=== PATIENT | female | born 1950 | race African-American/Black ===

== ENCOUNTER 2017-01-27 12:03 | Emergency (ER) | payer OTHER ==
[~2017-01-27] VITALS: Ht 152.4 cm; Wt 56.8 kg
[2017-01-27] MEDS ORDERED: LISI-661 PO (12:26)
[2017-01-27] MEDS ORDERED: ASPI-556 PO (12:26)
[2017-01-27] MEDS ORDERED: AMLO-511 PO (12:26)
[2017-01-27] MEDS ORDERED: PRAV40 PO (12:26)
[2017-01-27 13:30] VITALS: BP 130/75
== END 2017-01-27 13:56 | disposition home or self-care (01) ==
LOC: EMS 12:07
DX: M62.838 Other muscle spasm (principal); I10 Essential (primary) hypertension; Z79.82 Long term (current) use of aspirin
CPT/HCPCS: 99282

== ENCOUNTER 2017-10-14 09:39 | Emergency (ER) | payer OTHER ==
[~2017-10-14] VITALS: Ht 149.9 cm; Wt 54.5 kg
[~2017-10-14 09:39] MED LIST: AMLO-511 PO; ASPI-556 PO; LISI-661 PO; PRAV40TA4 PO
[2017-10-14] MEDS ORDERED: IBUP-2070 PO (09:59)
[2017-10-14] MEDS ORDERED: LISI1TAB9 PO (09:59)
[2017-10-14] MEDS ORDERED: IOVERSOL 320 MG/ML 100 ML VIAL ONE (10:33)
[2017-10-14] MEDS ORDERED: SODIUM CHLORIDE 0.9% 100 ML ONE (10:33)
[2017-10-14 10:46] LABS: BASOPHILS % (AUTO) 0.9 % (0.0-2.0); EOSINOPHILS % (AUTO) 1.3 % (1.0-6.0); HEMATOCRIT 32.8 % (36-46); HEMOGLOBIN 11.5 g/dL (12.0-16.0); LYMPHOCYTES # (AUTO) 1.4 K/uL (1.0-4.8); LYMPHOCYTES % (AUTO) 36.1 % (22.0-44.0); MEAN CORPUSCULAR HEMOGLOBIN 30.5 pg (26.0-34.0); MEAN CORPUSCULAR VOLUME 87 fL (80-100); MONOCYTES # (AUTO) 0.3 K/uL (0.1-1.0); MONOCYTES % (AUTO) 7.9 % (2.0-9.0); NEUTROPHILS % (AUTO) 53.8 % (40.0-70.0); PLATELET COUNT (AUTO) 271 K/uL (150-450); RED BLOOD CELL COUNT(AUTO) 3.77 MIL/uL (4.00-5.20); RED CELL DISTRIBUTION WIDTH 12.6 % (11.5-14.5)
[2017-10-14 10:50] LABS: CALCIUM, TOTAL 9.4 mg/dL (8.8-10.5); CREATININE 1.39 mg/dL (0.60-1.30); POTASSIUM 3.8 mmol/L (3.5-5.1)
[2017-10-14 10:55] LABS: ALBUMIN 4.1 g/dL (3.4-5.0); BILIRUBIN,TOTAL 0.3 mg/dL (0.1-1.0); TOTAL PROTEIN, SERUM 7.6 g/dL (6.4-8.2)
[2017-10-14] MEDS ORDERED: BARIUM SULFATE 0.1% SUSPENSION 450 ML BOTTLE PO ONE (11:15)
[2017-10-14 14:22] LABS: APPEARANCE,URINE CLEAR (CLEAR); BILIRUBIN,URINE NEGATIVE (NEGATIVE); GLUCOSE, URINE (UA) NEGATIVE (NEGATIVE); KETONES,URINE NEGATIVE (NEGATIVE); LEUKOCYTE ESTERASE ,URINE NEGATIVE (NEGATIVE); NITRATE,URINE NEGATIVE (NEGATIVE); OCCULT BLOOD,URINE NEGATIVE (NEGATIVE); PH,URINE 6.5 (5.0-8.0); PROTEIN,URINE NEGATIVE (NEGATIVE); UROBILINOGEN,URINE 0.2 mg/dL (<=1.0)
[2017-10-14 14:32] LABS: BACTERIA,URINE None Seen /HPF (None Seen); RBC,URINE None Seen /HPF (0-2); SQUAMOUS EPITHELIAL CELL,UR Few /LPF (None Seen); WBC,URINE 0-2 /HPF (0-5)
[2017-10-14 14:34] VITALS: BP 113/68
== END 2017-10-14 15:07 | disposition home or self-care (01) ==
LOC: EMS 09:40
DX: R10.31 Right lower quadrant pain (principal); Q35.9 Cleft palate, unspecified; I10 Essential (primary) hypertension
CPT/HCPCS: 36415; 74177; 80053; 81001; 83690; 85025; 93005; 99285; J7050; Q9967